=== PATIENT | male | born 1990 | race Hispanic/Latino ===

== ENCOUNTER 2019-03-16 20:03 | Emergency (ER) | payer OTHER ==
[2019-03-16] MEDS ORDERED: ACETAMINOPHEN EXTRA STRENGTH 500 MG TABLET ONE (20:24)
[2019-03-16] MEDS ORDERED: IBUPROFEN 600 MG TABLET ONE (21:06)
== END 2019-03-16 21:41 | disposition home or self-care (01) ==
LOC: EDH 20:03
DX: R50.9 Fever, unspecified (principal)
CPT/HCPCS: 87804